=== PATIENT | female | born 1970 | race Caucasian/White ===

== ENCOUNTER 2019-05-14 11:01 | Day surgery (SDC) | payer MEDICARE, MEDICAID ==
[2019-05-14] MEDS ORDERED: PROPOFOL 10 MG/ML VIAL IV ONE (11:02)
[2019-05-14] MEDS ORDERED: LIDOCAINE 2% MDV (20MG/ML) 20ML VIAL IV ONE (11:02)
--- NOTE | 2019-05-26 09:20 | Operative Note ---
OPERATION: COLONOSCOPY with cold snare polypectomy and hot snare polypectomy. PREOPERATIVE DIAGNOSIS: Colon cancer screening, average risk, initial exam. POSTOPERATIVE DIAGNOSIS: Rectal polyps x5, one removed with a hot snare and 4 removed with a cold snare. PREPARATION QUALITY: Good. ESTIMATED BLOOD LOSS: Minimal. SPECIMENS: Rectal polyps. PROCEDURE: After informed consent was obtained from the patient, she was placed in the left lateral decubitus position in the endoscopy suite, sedated and monitored by the department of anesthesia. Digital rectal exam revealed some non-thrombosed external hemorrhoids. A well-lubricated ZLV486 colonoscope was inserted into the rectum and advanced to the cecum. Preparation quality was good. The cecum, cecal bulb, ileocecal valve, appendiceal orifice, ascending colon, transverse colon, descending colon, and sigmoid colon were unremarkable. The rectum revealed multiple polyps, 4 removed with a cold snare. These ranged in size from 4-5 mm. There was a 1 cm semi-pedunculated polyp removed with a polypectomy snare and ERBE EndoCut current with no bleeding noted at the site. Forward and J-turn views of the rectum and anorectum were otherwise unremarkable. The endoscope was straightened, the rectal ampulla deflated, and the endoscope was removed. RECOMMENDATIONS: The patient should follow a soft, low-fiber diet for the next 2 weeks. She will require repeat exam in 3-5 years pending tissue histology. As always, thank you for allowing me to participate in the healthcare of your patients. NADEEM
== END 2019-05-14 13:00 | disposition home or self-care (01) ==
LOC: HOP 11:01
PROVIDERS: ATTEND Internal Medicine Gastroenterology
DX: Z12.11 Encounter for screening for malignant neoplasm of colon (principal); D12.8 Benign neoplasm of rectum; I10 Essential (primary) hypertension; E78.00 Pure hypercholesterolemia, unspecified; M19.90 Unspecified osteoarthritis, unspecified site